=== PATIENT | male | born 1945 | race Two or more races ===

== ENCOUNTER 2018-11-23 14:15 | Outpatient (CLI) | payer OTHER | END 2018-11-23 15:26 | disposition home or self-care (01) | LOC: LAB 14:15 | DX: R97.20 Elevated prostate specific antigen [PSA] (principal) ==

== ENCOUNTER 2018-12-17 07:33 | Outpatient (CLI) | payer OTHER | END 2018-12-17 07:44 | disposition home or self-care (01) | LOC: SONOGRAMA 07:33 | DX: R97.20 Elevated prostate specific antigen [PSA] (principal) ==